=== PATIENT | female | born 1980 | race Caucasian/White ===

== ENCOUNTER 2016-07-02 16:47 | Emergency (ER) | payer OTHER ==
[~2016-07-02] VITALS: Ht 195.6 cm; Wt 136.4 kg
[2016-07-02 17:08] VITALS: BP 130/85; PULSE 82; RESP 16; O2SAT 97
--- NOTE | 2016-07-02 17:55 | DRSVH ---
PROCEDURE: X-RAY RIGHT KNEE, THREE VIEWS ([id number]) INDICATIONS: Knee pain TECHNIQUE: 3 views of the knee were acquired. COMPARISON: None. FINDINGS: Bones: No fractures or dislocations. No suspicious bony lesions. Soft tissues: No joint effusion. No suspicious soft tissue calcifications. IMPRESSION: 1. No fracture or subluxation. Dictated by: Osmar Jurado M.D. on 07/02/2016 at 17:48 Approved by: Osmar Jurado M.D. on 07/02/2016 at 17:49
--- NOTE | 2016-07-02 18:12 | ED.REPORT ---
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 She reports pain throughout her shift and came to the emergency department after shift was completed. She says the pain has been worse and worse throughout the day. She has no sensation of giving way of the knee nor did the pain or injury caused her to fall to the ground. She reports previous meniscal surgery on that knee many years ago. She reports no intervening problems. Nursing Notes Stated Complaint: RIGHT KNEE INJURY Chief Complaint: Extremity Trauma Allergies: Coded Allergies: No Known Allergies (Unverified , 07/02/16) General Time Seen by MD: 17:47 Chief Complaint Knee injury right Hx Obtained From: Patient Past Medical History Past Medical History Denies other than orthopedic and arthritis issues. Smoking History Never Smoker Review of Systems Complete sys rev & neg: except as marked. Physical Exam Initial Vital Signs Vital Signs (First) Date Time Temp Pulse Resp B/P Pulse Ox O2 Delivery O2 Flow Rate FiO2 07/02/16 17:08 36.3 82 16 130/85 97 Room Air Initial VS: Reviewed General/Constitutional: Well-developed, Well-nourished Head / Eyes: Atraumatic, Normocephalic Neck: Supple, Full range of motion Respiratory: No respiratory distress Skin: Warm, Dry Neurologic: Alert, Oriented Psychiatric: Mood/affect normal, Behavior normal, Normal thought content Normal peripheral pulses in the right foot and normal sensation in the foot. She has swelling and diffuse tenderness of the right knee she has predominant medial joint line tenderness though there is some significant lateral joint line tenderness as well. There is no laxity to the anterior cruciate ligament, PCL, lateral or medial collateral ligaments. She can ambulate and bear weight though with significant limping. Re-Eval/Medical Decision Med Decision/Clinical Course I do not believe imaging is indicated at this time given the fact that she can ambulate though with difficulty and the mechanism of her injury is not consistent with fracture. Discharge & Departure Impression: Primary Impression: Right knee injury Encounter type: initial encounter Qualified Code: S89.91XA - Unspecified injury of right lower leg, initial encounter Disposition: Home Patient Instructions: Knee Sprain (ED) Additional Instructions: Limit walking as much as you are able as limited by pain. Use the knee immobilizer when ambulating and the crutches for support. Toe-touch weightbearing is okay. I recommend ibuprofen 800 mg every 8 hours by the clock for number of days until the pain is resolved or significantly improved. Use hydrocodone/APAP as needed for more severe pain to assist with sleeping. If you use this medication of course you should not drive a car until 4 hours have elapsed since the last dose and no alcohol should be used while taking this medication. Follow-up in a week if not significantly improved. Referrals: [facility] (PCP) Velasquez Pavon MD Jul 02, 2016 18:12
[2016-07-02] MEDS ORDERED: HYDR-4003 PO (18:14)
== END 2016-07-02 18:28 | disposition home or self-care (01) ==
LOC: SED 16:47
DX: S89.91XA Unspecified injury of right lower leg, initial encounter (principal); X50.1XXA Overexertion from prolonged static or awkward postures, initial encounter; Y93.89 Activity, other specified; Y92.69 Other specified industrial and construction area as the place of occurrence of the external cause; Y99.0 Civilian activity done for income or pay